=== PATIENT | female | born 1995 | race Caucasian/White ===

== ENCOUNTER 2025-08-07 09:58 | Emergency (ER) | payer OTHER ==
[~2025-08-07] VITALS: Ht 162.5 cm
[2025-08-07] MEDS ORDERED: METHOCARBAMOL750 M1 PO (11:05)
[2025-08-07] MEDS ORDERED: Acetaminophen/Oxycodone 5 MG/325 MG TABLET PO ONE (11:10)
== END 2025-08-07 11:12 | disposition home or self-care (01) ==
LOC: ED 09:58
DX: S39.012A Strain of muscle, fascia and tendon of lower back, initial encounter (principal); X58.XXXA Exposure to other specified factors, initial encounter; Y93.E6 Activity, residential relocation; Y92.89 Other specified places as the place of occurrence of the external cause; Y99.8 Other external cause status

== ENCOUNTER → 2025-08-29 | Outpatient (CLI) | payer OTHER ==
[~2025-08-29] MED LIST: METHOCARBAMOL750 M1 PO
== END | disposition home or self-care (01) ==
LOC: RAD 08-25 13:09
PROVIDERS: ATTEND Family Medicine
DX: S23.9XXA Sprain of unspecified parts of thorax, initial encounter (principal); M51.44 Schmorl's nodes, thoracic region; X58.XXXA Exposure to other specified factors, initial encounter; Y93.89 Activity, other specified; Y92.89 Other specified places as the place of occurrence of the external cause; Y99.8 Other external cause status